=== PATIENT | female | born 1960 | race Caucasian/White ===

== ENCOUNTER 2019-06-09 06:31 | Day surgery (SDC) | payer BC ==
[~2019-06-09] VITALS: Ht 160 cm; Wt 56.2 kg
[2019-06-09] MEDS ORDERED: PRINIVIL10 MG PO (06:50)
[2019-06-09] MEDS ORDERED: SYNTHROID0.088 MG/T PO (06:51)
[2019-06-09] MEDS ORDERED: IBU800 M1 PO (06:51)
[2019-06-09] MEDS ORDERED: LAMICTAL 100MG100 MG PO (06:51)
[2019-06-09] MEDS ORDERED: MULTI VITAMINS1 TAB PO (06:52)
[2019-06-09] MEDS ORDERED: ASPIRIN E.C. 8181 MG PO (06:52)
[2019-06-09 07:02] VITALS: BP 100/71; PULSE 72; TEMP 98.7
[2019-06-09 08:15] VITALS: BP 91/58; PULSE 80; TEMP 97.5
--- NOTE | 2019-06-09 08:15 | NUR ---
Patient arrives via cart to [facility] post-procedure for recovery. She is accompanied by Endo RN Teresita. Bedside report received. Patient is alert and oriented. She ambulates to the chair in the room with a steady gait and standby assist. She denies any pain, nausea, dizziness, or other symptoms. Monitoring applied - VSS and WNL on room air. Call light in reach. Will continue to monitor.
[2019-06-09 08:30] VITALS: BP 87/54; PULSE 69
--- NOTE | 2019-06-09 08:30 | NUR ---
Patient resting comfortably in room. Denies any pain, nausea, or other complaint. Offered and receives toast and water.
[2019-06-09 08:45] VITALS: BP 99/70; PULSE 70
--- NOTE | 2019-06-09 08:45 | NUR ---
Patient has eaten her toast and is drinking water. VSS and WNL on room air. She denies any pain, nausea, or other need at this time. Her is contacted for a ride home.
[2019-06-09 09:00] VITALS: BP 103/67; PULSE 63
--- NOTE | 2019-06-09 09:21 | NUR ---
Patient has met discharge criteria. Discharge instructions discussed with her and her spouse. They deny any questions and verbalize understanding. PIV is removed with catheter intact and hemostasis achieved. She changes independently. She is escorted to the exit via wheelchair by staff. Discharged to home with ride in private vehicle at 0921.
== END 2019-06-09 09:21 | disposition home or self-care (01) ==
LOC: SDCO 06:31
DX: Z12.11 Encounter for screening for malignant neoplasm of colon (principal); K57.30 Diverticulosis of large intestine without perforation or abscess without bleeding; I10 Essential (primary) hypertension; F31.9 Bipolar disorder, unspecified; G47.00 Insomnia, unspecified; M81.0 Age-related osteoporosis without current pathological fracture; Z85.828 Personal history of other malignant neoplasm of skin; Z79.82 Long term (current) use of aspirin; Z95.2 Presence of prosthetic heart valve; Z88.0 Allergy status to penicillin; Z88.1 Allergy status to other antibiotic agents
CPT/HCPCS: J2250; J2704; J3010; J7120

== ENCOUNTER → 2019-11-24 | Outpatient (CLI) | payer BC ==
[~2019-11-24] MED LIST: ASPIRIN E.C. 8181 MG PO; IBU800 M1 PO; LAMICTAL 100MG100 MG PO; MULTI VITAMINS1 TAB PO; PRINIVIL10 MG PO; SYNTHROID0.088 MG/T PO
== END ==
LOC: ZCOL.LAB 18:24
DX: R05 Cough (principal); Z20.828 Contact with and (suspected) exposure to other viral communicable diseases

== ENCOUNTER 2020-08-22 12:58 | Inpatient (IN) | payer BC ==
[2020-08-22] VITALS (18 sets, daily range): BP systolic 77–116; BP diastolic 41–75; PULSE 51–89; TEMP 97.6–98.6
[~2020-08-22] VITALS: Ht 152.5 cm; Wt 70.1 kg
[2020-08-22 13:51] LABS: BASO # 0.1 (0.0-0.2); BASO % 0.9 % (0.0-2.0); EOS # 0.1 (0.0-0.7); EOS % 0.9 % (0-4.0); GRAN # 3.7 (1.4-6.5); GRAN % 64.8 % (42.2-75.2); HEMATOCRIT 42.7 % (37.0-47.0); LYMPH # 1.3 (1.2-3.4); LYMPH % 23.6 % (20.0-51.0); MEAN CELL VOLUME 96 fl (80.0-100.0); MEAN CORPUSCULAR HEMOGLOBIN 32 pg (27.0-31.0); MEAN CORPUSCULAR HGB CONC 33 g/dl (33.0-37.0); MEAN PLATELET VOLUME 10.6 fl (7.4-10.4); MONO # 0.5 (0.1-0.6); MONO % 9.6 % (1.7-9.3); PLATELET COUNT 136 K/mm3 (130-400); RED BLOOD COUNT 4.43 M/mm3 (4.10-5.30); REDCELL DISTRIBUTION WIDTH-CV 12.4 % (11.5-14.5)
[2020-08-22 13:57] LABS: INR 1.1 (0.8-3.0)
[2020-08-22 13:59] LABS: PARTIAL THROMBOPLASTIN TIME 28.4 SECONDS (26.0-37.0)
[2020-08-22 14:00] LABS: ALANINE AMINOTRANSFERASE 13 U/L (4-34); ALBUMIN 4.4 gm/dL (3.5-5.0); ALKALINE PHOSPHATASE 57 U/L (50-136); ANION GAP 8 mmol/L (7-16); AST,SGOT 31 U/L (15-37); BILIRUBIN,TOTAL 0.4 mg/dL (0.0-1.0); BLOOD UREA NITROGEN 15 mg/dL (7-17); CALCIUM 9.7 mg/dL (8.4-10.2); CARBON DIOXIDE 29 mmol/L (22-30); CHLORIDE 104 mmol/L (98-107); CREATININE, serum 0.85 (0.52-1.25); GLUCOSE 94 mg/dL (74-106); POTASSIUM 3.8 mmol/L (3.4-5.0); SODIUM 140 mmol/L (137-145); TOTAL PROTEIN 7.8 gm/dL (6.4-8.2)
[2020-08-22 14:18] LABS: TROPONIN-I < 0.012 ng/mL (0.000-0.035)
[2020-08-22] MEDS ORDERED: PROTONIX 40MG T40 MG PO (14:49)
--- NOTE | 2020-08-22 16:45 | NUR ---
Pt admitted to medical unit rm 358 from ED, A&O x 4, reports slight headache, denies other c/o. Heparin infusing through IV at 7 ml/hr as started in ED, placed in standby for lab draw. POC reviewed with pt. Call light in reach.
--- NOTE | 2020-08-22 17:54 | NUR ---
Heparin rate increased to 10.5 ml/hr per new orders on eMAR verified by DUONG Sousa.
--- NOTE | 2020-08-22 18:45 | NUR ---
Tele notifies this nurse of pt's heart rate in the 150s. Pt sitting up in bed eating dinner, states, "I'm actually feeling better." EKG ordered per protocol and RT notified. call center dispatcher cardiology notified, orders received. supervisory investigative specialist notified as well, awaiting word back regarding need for drip.
--- NOTE | 2020-08-22 20:51 | NUR ---
During shift report, WHITNEY Balderas in room with patient. Orders recieved. Due to BP, ordered to not give Cardizem bolus, just start the Cardizem drip. Every 15 minute BP checks. Replace Potassium. Start LR. Patient moved to room 313 for closer monitoring. Continues on telemetry, as well as bedside registered nurse cardiac with BPs cycling. To call Sherrie if BPs go below 90 systolic, or HR above 120. Patient denies having pain and discomfort. HepXa was obtained, and restarted Heparin drip per protocol at this time at 7.5 ml/hr. Patient has two IV sites, one to left hand and one to right wrist. Both sites being used and are without redness, warmth, swelling, and pain. LS CTA. Respirations even and unlabored. HRI: A-fib now 80s. Capillary refill less than 3 seconds. Non-tenting skin turgor. BSAx4. Abdomen soft and non-tender. Assisted to bedside commode with two assist due to IV tubings and lower BPs. Patient did well, denied dizziness. HR did not go above 120. Urine clear and yellow. No edema. Voices no questions, needs, or concerns at this time. Assisted back to bed. Updated that she will be NPO after midnight for cardioversion tomorrow, and voiced understanding. Resting in bed with call light within reach. Encouraged to call with any questions, needs, or concerns, and voiced understanding.
--- NOTE | 2020-08-22 21:30 | NUR ---
BPs 85/45, called WHITNEY Balderas. New order to increase LR to 150 ml/hr, and give 500 ml bolus over one hour. Continues to be A-fib 50s-70s on telemetry. Voices no questions, needs, or concerns. Updated patient on plan of care with BPs, and voiced understanding.
--- NOTE | 2020-08-22 22:08 | NUR ---
BP 81/31, recheck 77/47. Called WHITNEY Balderas at this time. Ayo geiger put on hold.
[2020-08-23] VITALS (322 sets, daily range): BP systolic 81–121; BP diastolic 51–77; PULSE 59–80; TEMP 97.4–99; O2SAT 84–99
[2020-08-23 03:12] LABS: BASO % 0.9 % (0.0-2.0); EOS # 0.1 (0.0-0.7); EOS % 2.2 % (0-4.0); GRAN # 2.3 (1.4-6.5); GRAN % 48.6 % (42.2-75.2); LYMPH # 1.8 (1.2-3.4); LYMPH % 37.8 % (20.0-51.0); MEAN CELL VOLUME 95 fl (80.0-100.0); MEAN CORPUSCULAR HGB CONC 33 g/dl (33.0-37.0); MEAN PLATELET VOLUME 10.5 fl (7.4-10.4); MONO # 0.5 (0.1-0.6); MONO % 10.3 % (1.7-9.3); PLATELET COUNT 111 K/mm3 (130-400); RED BLOOD COUNT 3.73 M/mm3 (4.10-5.30); REDCELL DISTRIBUTION WIDTH-CV 12.6 % (11.5-14.5)
[2020-08-23 03:18] LABS: HEMATOCRIT 35.4 % (37.0-47.0); MEAN CORPUSCULAR HEMOGLOBIN 32 pg (27.0-31.0)
[2020-08-23 03:19] LABS: HEMOGLOBIN 11.8 g/dl (12.5-16.0)
[2020-08-23 03:20] LABS: CALCIUM 8.6 mg/dL (8.4-10.2); CREATININE, serum 0.64 (0.52-1.25)
[2020-08-23 03:27] LABS: INR 1.1 (0.8-3.0); PROTHROMBIN TIME 12.8 SECONDS (9.7-12.8)
--- NOTE | 2020-08-23 05:31 | NUR ---
Patient has been resting in bed with call light within reach. Denies having pain and discomfort. Cardizem drip remains off due to low BPs. Telemetry continues to show A-fib, rate controlled with HR in the 60-80s. BP continues to be 80-90 systolic, 40-50s diastolic. Voices no questions, needs, or concerns at this time, except asking when cardioversion will be today. Updated that we did not have a time for procedure at this time, but will update her as soon as staff knows. Voiced understanding.
--- NOTE | 2020-08-23 08:00 | NUR ---
Patient in bed resting. Alert and oriented x 3. Assessment complete. Patient denies pain at this time. Heparin drip and LR infusing per orders. INT to right hand. Tele in place, monitor at bedside. Denies further needs at this time.
--- NOTE | 2020-08-23 09:17 | NUR ---
Wood Gang Sawyer attended clinical rounds with the team. The patient's was present. The patient to have a EDMOND this day.
--- NOTE | 2020-08-23 10:11 | NUR ---
Initial visit; Patient thanked Bundle Cutter for looking in on her and offering God's blessings and Happy Easter.
--- NOTE | 2020-08-23 10:22 | NUR ---
Heparin rate changed to 6.5 per orders.
--- NOTE | 2020-08-23 10:30 | NUR ---
Contacted Dr. Coleman for port placement
--- NOTE | 2020-08-23 11:28 | NUR ---
Dr. Quinn in to see patient.
--- NOTE | 2020-08-23 11:43 | NUR ---
Patient to pathology laboratory aides teacher by bed, spouse at bedside.
--- NOTE | 2020-08-23 13:31 | NUR ---
Report to Alis WATTERS
--- NOTE | 2020-08-23 14:49 | NUR ---
Primary nurse (medical unit) was assisted with [phone] patient care by [employer] student Sanjana Lucas and [employer] instructor Gena Silva MSN, RN.
--- NOTE | 2020-08-23 20:00 | NUR ---
PATIENT AMBULATING HALLS WITH IV INTACK AND INFUSING INDEPEDENT, AMBULATES OVER 50 FEET, DENIES DISCOMFORT HEART MONITORED THROUGHOUT NO CHANGES
[2020-08-24] VITALS (297 sets, daily range): BP systolic 92–151; BP diastolic 53–86; PULSE 53–85; TEMP 97.5–99.2; O2SAT 85–99
[2020-08-24 05:35] LABS: HEMATOCRIT 37.4 % (37.0-47.0); HEMOGLOBIN 12.3 g/dl (12.5-16.0); MEAN CELL VOLUME 96 fl (80.0-100.0); MEAN CORPUSCULAR HEMOGLOBIN 32 pg (27.0-31.0); MEAN CORPUSCULAR HGB CONC 33 g/dl (33.0-37.0); MEAN PLATELET VOLUME 10.2 fl (7.4-10.4); PLATELET COUNT 116 K/mm3 (130-400); REDCELL DISTRIBUTION WIDTH-CV 12.5 % (11.5-14.5)
[2020-08-24 05:45] LABS: CALCIUM 9.3 mg/dL (8.4-10.2); CREATININE, serum 0.83 (0.52-1.25); MAGNESIUM 1.9 mg/dL (1.6-2.3); POTASSIUM 4.7 mmol/L (3.4-5.0)
--- NOTE | 2020-08-24 08:15 | NUR ---
During assessment this am PT is very pleasant without complaint. Pt is concerned that due to the tikosyn therapy she is unable to take her lamictal as it is contraindicated with tikosyn. This information is passed on to Cardiology Dr. donnelly.
--- NOTE | 2020-08-24 11:44 | NUR ---
Rail Project Engineer met with patient to discuss discharge planning. Patient lives in [place] with with her , Skip (ph#[phone]) and sees Dr. Heard for primary care. Patient obtains medications from [facility] with no difficulties. 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 Patient does not use any DME and is independent with ADLS. Patient states she has DPOA-HC completed which designates her , Skip however there is no copy in EMR. Discharge plan: Home with .
--- NOTE | 2020-08-24 14:25 | NUR ---
PT report given to DUONG Keita on medical floor.
--- NOTE | 2020-08-24 14:40 | NUR ---
Pt transferred up to room 352 on Medical floor via wheelchair. PT is situated in room and given call light. Care assumed by DUONG Keita at this time.
--- NOTE | 2020-08-24 17:45 | NUR ---
Heparin infusion restarted to pt's IV site in left hand after being stopped for a shower at 1550 and visit from doctor . Rate remains at 6.5 ml/hr with order for recheck of HepXa in 6 hours. Pt denies further needs. Call light in reach.
--- NOTE | 2020-08-24 19:00 | NUR ---
Report to DUONG Valles. Pt resting in bed, denies pain or needs at this time.
--- NOTE | 2020-08-24 20:00 | NUR ---
Shift report recieved, assumed care for accounting intern. Assessment complete. VS stable. A&Ox3. Denies pain/nausea/shortness of breath. Heparin infusing @6.5ml/hr. Next hepxa due at 0000. Plan of care discussed for this shift to include HS meds/heparin-coumadin bridge/lab draw/calling for questions/concerns. Verbalizes understanding/denies needs. Call light in reach. Will monitor.
--- NOTE | 2020-08-25 00:30 | NUR ---
HepXa 0.30. Heparin increased 100units to 7.5ml/hr. HepXa ordered for 629. Will continue to monitor.
[2020-08-25 04:14] VITALS: BP 136/57; PULSE 65; TEMP 97.8
--- NOTE | 2020-08-25 05:44 | NUR ---
Rested well later this shift. Denies pain/nausea/shortness of breath. VS remained stable. States she hopes she get to go home today. Denies current needs. Call light in reach. Will monitor.
[2020-08-25 06:50] LABS: INR 1.3 (0.8-3.0); PROTHROMBIN TIME 14.2 SECONDS (9.7-12.8)
--- NOTE | 2020-08-25 07:28 | NUR ---
PT IS RESTING IN BED AT THIS TIME. HAS QUESTIONS ABOUT PENDING D/C TODAY. PT IS ANTICIPATING GOING HOME TODAY, SHE HAS REFUSED THE MRI AND EEG ORDERED BY DR. AGUILAR. NO OTHER CONCERNS AT THIS TIME.
[2020-08-25 08:02] VITALS: BP 129/66; PULSE 62; TEMP 99
[2020-08-25] MEDS ORDERED: LOVENOX 8080 MG/0.8 SQ (10:36)
[2020-08-25] MEDS ORDERED: TIKOSYN0.25 MG PO (10:39)
[2020-08-25] MEDS ORDERED: COUMADIN 5MG5 MG/TAB PO (10:40)
[2020-08-25] MEDS ORDERED: NEURONTIN100 MG/CAP PO (10:47)
== END 2020-08-25 12:31 | disposition home or self-care (01) | DRG 310 ==
LOC: COL.ER 12:58 → MEDICAL 16:01 → ICU 08-23 13:10 → MEDICAL 08-24 14:51
PROVIDERS: Family Medicine; Internal Medicine; Physician Assistant; ADMIT Hospitalist
PROC: 5A2204Z Restoration of Cardiac Rhythm, Single (ICD-10-PCS; principal; 2020-08-23)
DX: I48.91 Unspecified atrial fibrillation (principal); E87.6 Hypokalemia; I95.9 Hypotension, unspecified; I10 Essential (primary) hypertension; E03.9 Hypothyroidism, unspecified; M81.0 Age-related osteoporosis without current pathological fracture; G47.00 Insomnia, unspecified; G43.909 Migraine, unspecified, not intractable, without status migrainosus; K21.9 Gastro-esophageal reflux disease without esophagitis; R56.9 Unspecified convulsions; Z95.2 Presence of prosthetic heart valve; Z79.82 Long term (current) use of aspirin; Z88.0 Allergy status to penicillin; Z88.1 Allergy status to other antibiotic agents
CPT/HCPCS: 99222-AI; 99233-AI; 99239; J1644; J1650; J2704; J7120

== ENCOUNTER 2021-12-25 07:40 | Outpatient (CLI) | payer BC ==
[~2021-12-25] VITALS: Ht 160 cm; Wt 59.1 kg
[~2021-12-25 07:40] MED LIST changes: +COUMADIN 5MG5 MG/TAB PO; +LOVENOX 8080 MG/0.8 SQ; +NEURONTIN100 MG/CAP PO; +PROTONIX 40MG T40 MG PO; +TIKOSYN0.25 MG PO
[2021-12-25] MEDS ORDERED: CALCIUM 600MG+D1 TAB PO (08:10)
[2021-12-25] MEDS ORDERED: ZESTRIL2.5 MG PO (08:11)
[2021-12-25] MEDS ORDERED: NATURAL IRON65 MG PO (08:11)
[2021-12-25 08:17] VITALS: BP 110/76; PULSE 88; TEMP 98.4
== END 2021-12-25 09:02 ==
LOC: EUO 07:40
DX: M81.0 Age-related osteoporosis without current pathological fracture (principal)
CPT/HCPCS: J0897